=== PATIENT | female | born 1965 | race Caucasian/White ===

== ENCOUNTER → 2018-03-01 | Outpatient (CLI) | payer BC ==
[2016-02-18 08:00] VITALS: BP 110/74
[~2018-03-01] MED LIST: CALC1CAP7 PO; FLUT9.9S NS; LEVO125T PO; METO-239 PO; MULT1TAB52 PO
--- NOTE | 2018-03-01 14:55 | KCIC ---
MRI of the lumbar spine without contrast 03/01/2018 CLINICAL HISTORY: Low back pain which radiates down the right leg. TECHNIQUE: Unenhanced T1-weighted and T2-weighted sagittal and axial and inversion recovery sagittal images of the lumbar spine were obtained. FINDINGS: Very mild S-shaped curvature of the thoracolumbar spine is seen. Degenerative signal changes are seen involving the L2-3, L3-4, L4-5 and L5-S1 discs. Degenerative signal changes are seen within the marrow surrounding these discs. The conus medullaris is normal morphology, position, and signal characteristics. At T12-L1 disc space there is a mild generalized disc bulge. Superimposed on this disc bulge is a left paracentral focal disc protrusion. This measures 5 mm in AP diameter. Degenerative changes are seen involving the facet joints bilaterally. These findings result in mild to moderate left greater than right central spinal canal stenosis on the sagittal images. No neural foraminal stenosis is seen. At the L1-2 disc space there is a mild generalized disc bulge. This is eccentric to the right. Degenerative changes are seen involving the facet joints bilaterally. There is mild ligamentum flavum hypertrophy bilaterally. These findings when combined result in mild right greater than left central spinal canal stenosis. No neural foraminal stenosis is seen. At the L2-3 disc space there is a mild to moderate generalized disc bulge. Degenerative changes are seen involving the facet joints bilaterally. There is moderate ligamentum flavum hypertrophy bilaterally. There is prominence of the posterior epidural fat. These findings when combined result in mild to moderate central spinal canal stenosis. No neural foraminal stenosis is seen. At the L3-4 disc space there is a moderate generalized disc bulge. Superimposed on this disc bulge is a central/right paracentral disc herniation which extrudes superiorly and laterally to the right as a disc fragment. The extruded disc fragment measures 2.3 x 0.5 x 2.4 cm in craniocaudal, transverse, and AP dimensions. Degenerative changes are seen involving the facet joints bilaterally. There is moderate ligamentum flavum hypertrophy bilaterally. These findings when combined result in severe central spinal canal stenosis. Mild bilateral neural foraminal stenosis is seen. At the L4-5 disc space there is a mild generalized disc bulge. Degenerative changes are seen involving the facet joints bilaterally. There is mild ligamentum flavum hypertrophy bilaterally. There is prominence of the posterior epidural fat. These findings when combined result in moderate central spinal canal stenosis. No neural foraminal stenosis is seen. At the L5-S1 disc space is a mild generalized disc bulge. This is eccentric to the right. Degenerative changes are seen involving the facet joints bilaterally. There is mild ligament flavum hypertrophy. These findings when combined do not result in significant central spinal canal or neural foraminal stenosis. IMPRESSION: The changes of degenerative disc disease are seen throughout the lower thoracic and throughout the lumbar spine. These findings result in mild to moderate left greater than right central spinal canal stenosis at T12-L1, mild right greater than left central spinal canal stenosis at L1-2, mild to moderate central spinal canal stenosis at L2-3, severe central spinal canal stenosis at L3-4 and moderate central spinal canal stenosis at L4-5. Mild bilateral neural foraminal stenosis is seen at L3-4. Electronically signed by: Neftaly Pelletier MD (03/01/2018 2:52 PM) [facility]-KCIC1
== END | disposition home or self-care (01) ==
LOC: KCIC MRI 10:46
PROVIDERS: ATTEND Family Medicine
DX: M51.36 Other intervertebral disc degeneration, lumbar region (principal); M51.34 Other intervertebral disc degeneration, thoracic region; M48.05 Spinal stenosis, thoracolumbar region; M48.061 Spinal stenosis, lumbar region without neurogenic claudication; M51.26 Other intervertebral disc displacement, lumbar region
CPT/HCPCS: 72148

== ENCOUNTER → 2018-03-19 | Outpatient (CLI) | payer BC ==
[2016-02-18 08:00] VITALS: BP 110/74
[~2018-03-19] MED LIST changes: +CYCL5TAB PO; +HYDR-3135 PO; +IBUP-1060 PO; +LEVO112T4 PO; +METO-269 PO; +MUPI22OI2 NS
--- NOTE | 2018-03-19 15:17 | EKG ---
[facility] [address] [place] [address] Test Date: 2018-03-19 Test Time: 15:25:22 Pat Name: ALECIA ANDREW Department: Room: Gender: F Cost Control Specialist: GLORIA : 1965 Requested By: ABEL VARGAS Order Number: [id number] Reading MD: Nelson Canales Measurements Intervals [place] Rate: 83 P: 19 IL: 138 QRS: -27 QRSD: 86 T: 19 QT: 376 QTc: 442 Interpretive Statements SINUS RHYTHM LEFTWARD AXIS NONSPECIFIC ST-T WAVE CHANGES. Electronically Signed On 03-20-2018 9:47:38 CHARGE ENTRY by Nelson Canales
[2018-03-19 15:20] LABS: BASO % 1 % (0-3); EOS # 0.2 x10^3/uL (0.0-0.7); EOS % 3 % (0-3); HEMATOCRIT 37.2 % (36.0-47.0); HEMOGLOBIN 13.1 g/dL (12.0-15.5); LYMPH # 2.1 x10^3/uL (1.0-4.8); LYMPH % 32 % (24-48); MEAN CORPUSCULAR HEMOGLOBIN 30 pg (25-35); MEAN CORPUSCULAR HGB CONC 35 g/dL (31-37); MEAN CORPUSCULAR VOLUME 87 fL (79-100); MONO # 0.5 x10^3/uL (0.0-1.1); MONO % 8 % (0-9); NEUT # 3.6 x10^3uL (1.8-7.7); NEUT % 56 % (31-73); PLATELET COUNT 248 x10^3/uL (140-400); RED CELL DISTRIBUTION WIDTH 13.3 % (11.5-14.5); WHITE BLOOD COUNT 6.5 x10^3/uL (4.0-11.0)
[2018-03-19 15:30] LABS: PROTHROMBIN TIME PATIENT 12.4 SEC (11.7-14.0)
[2018-03-19 15:56] LABS: ALBUMIN 3.8 g/dL (3.4-5.0); ALBUMIN/GLOBULIN RATIO 1.2 (1.0-1.7); CREATININE 0.7 mg/dL (0.6-1.0); GFR 87.2; TOTAL BILIRUBIN 0.2 mg/dL (0.2-1.0); TOTAL PROTEIN 7.1 g/dL (6.4-8.2)
--- NOTE | 2018-03-19 15:57 | RAD ---
AP and Lateral Views of the Chest 03/19/2018 3:40 PM Indication: PRE-OP FOR LUMBAR SPINE SURGERY NEXT WEEK Comparison: None Findings: There is no focal consolidation or infiltrate identified. The cardiomediastinal silhouette is within normal limits. There is no evidence of pneumothorax or pleural effusion. No acute osseous abnormalities are identified. Postsurgical changes to the cervical spine noted. Impression: No evidence of acute cardiopulmonary process. Electronically signed by: Maximo Fan MD (03/19/2018 3:54 PM) [facility]-PMC3
[2018-03-20 02:17] LABS: HEMOGLOBIN A1C 6.2 % (4.8-5.6)
== END | disposition home or self-care (01) ==
LOC: SURGPAT 14:43
PROVIDERS: ATTEND Neurological Surgery
DX: Z01.818 Encounter for other preprocedural examination (principal); M51.16 Intervertebral disc disorders with radiculopathy, lumbar region
CPT/HCPCS: 36415; 71046; 80053; 83036; 85025; 85610; 85730; 87641; 93005

== ENCOUNTER 2018-03-26 06:56 | Observation (INO) | payer BC ==
[2018-03-26] VITALS (10 sets, daily range): BP systolic 123–160; BP diastolic 70–91
[~2018-03-26] VITALS: Ht 149.9 cm; Wt 96.2 kg
[~2018-03-26 06:56] MED LIST changes: +BACITRACIN 50,000 UNIT in IV NORMAL SALINE 1000ML BAG 1,000 ML IRR ONE; +BUPIVACAINE MPF 0.5% 30 ML VIAL. ONE; +GELATIN SPONGE SIZE 100. ONE; +LIDOCAINE 1%/EPI 1:100,000 20 ML VIAL. ONE; +THROMBIN TOPICAL 20,000 UNIT SPRAY.SYRN KIT TP ONE
[2018-03-26] MEDS ORDERED: IV RINGERS,LACTATED 1000ML 1,000 ML IV SCH (07:00)
[2018-03-26] MEDS ORDERED: PROCHLORPERAZINE 10 MG/2 ML VIAL. IV PRN (07:00)
[2018-03-26] MEDS ORDERED: fentaNYL PF VIAL 100 MCG/2 ML VIAL IV PRN ×3 (07:00→11:15)
[2018-03-26] MEDS ORDERED: HYDROmorphone 2 MG/ML VIAL IV PRN (07:00)
[2018-03-26] MEDS ORDERED: LIDOCAINE 1% PF 2 ML VIAL. ID PRN (07:00)
[2018-03-26] MEDS ORDERED: ONDANSETRON PF 4 MG/2 ML VIAL. IV PRN ×2 (07:00→11:15)
[2018-03-26] MEDS ORDERED: VANCOMYCIN 1GM IVPB FOR OMNI 250 ML ONE (07:59)
[2018-03-26] MEDS ORDERED: ROCURONIUM 50 MG/5 ML VIAL. ONE (08:14)
[2018-03-26] MEDS ORDERED: REMIFENTANIL 2 MG VIAL. IV ONE (08:14)
[2018-03-26] MEDS ORDERED: GLYCOPYRROLATE 1 MG/5 ML VIAL. ONE (08:14)
[2018-03-26] MEDS ORDERED: PROPOFOL 100 ML IV ONE ×2 (08:20→10:08)
[2018-03-26] MEDS ORDERED: MIDAZOLAM HCL/PF 2 MG/2 ML VIAL. ONE (08:20)
[2018-03-26] MEDS ORDERED: SUCCINYLCHOLINE 200 MG/10 ML VIAL. ONE (08:20)
[2018-03-26] MEDS ORDERED: fentaNYL PF VIAL 250 MCG/5 ML VIAL ONE (08:20)
[2018-03-26] MEDS ORDERED: DESFLURANE > 120 MINUTES IH ONE (08:23)
[2018-03-26] MEDS ORDERED: PHENYLEPHRINE 10 MG/ML VIAL. ONE (08:23)
[2018-03-26] MEDS ORDERED: PROPOFOL 20 ML IV ONE (09:11)
[2018-03-26] MEDS ORDERED: ONDANSETRON PF 4 MG/2 ML VIAL. ONE (09:11)
[2018-03-26] MEDS ORDERED: KETOROLAC 30 MG/ML INJ FOR OR. INJ ONE (09:11)
[2018-03-26] MEDS ORDERED: DEXAMETHASONE SOD PHOS 20 MG/5 ML VIAL. ONE (09:11)
[2018-03-26] MEDS ORDERED: NEOSTIGMINE METHYLSULFATE 5 MG/5 ML SYRINGE. ONE (10:44)
--- NOTE | 2018-03-26 11:04 | PDOC ---
BRIEF OPERATIVE NOTE Date: Mar 26, 2018 Pre-Op Diagnosis lumbar disk herniation, lumbar radiculopathy, weakness, lumbar spondylosis Post-Op Diagnosis same Procedure Performed right L3-4 hemilaminotomy with discectomy, use of microscope, neuromonitoring Surgeon Danny Brian Anesthesia Type: General Blood Loss 25mL Specimens Obtained disk and decompression Findings prominent stenosis due to disk herniation in and ligamentous hypertrophy, neuromonitoring potentials remained at least baseline throughout the procedure with some improvement of RLE SSEPs at the completion of the procedure Complications none apparent ABEL VARGAS MD Mar 26, 2018 11:04
[2018-03-26] MEDS ORDERED: MUPIROCIN 2 % NASAL OINTMENT 22GM TUBE. NS PRN (11:15)
[2018-03-26] MEDS ORDERED: 0.9 % SODIUM CHLORIDE 10 ML DISP.SYRIN. IV PRN (11:15)
[2018-03-26] MEDS ORDERED: CALCIUM CARBONATE 500 MG TAB.CHEW PO PRN (11:15)
[2018-03-26] MEDS ORDERED: MAG HYDROX/ALUMINUM HYD/SIMETH 30 ML ORAL.SUSP PO PRN (11:15)
[2018-03-26] MEDS ORDERED: MAGNESIUM HYDROXIDE 2,400 MG/30 ML ORAL.SUSP. PO PRN (11:15)
[2018-03-26] MEDS ORDERED: diphenhydrAMINE HCL 25 MG CAPSULE PO PRN (11:15)
[2018-03-26] MEDS ORDERED: ZOLPIDEM 5 MG TABLET. PO PRN (11:15)
[2018-03-26] MEDS ORDERED: NALOXONE 0.4 MG/ML VIAL. IV PRN (11:15)
[2018-03-26] MEDS ORDERED: ACETAMINOPHEN 325 MG TABLET. PO PRN (11:15)
[2018-03-26] MEDS ORDERED: fentaNYL PF VIAL 100 MCG/2 ML VIAL ONE ×2 (11:24→11:50)
[2018-03-26] MEDS: fentaNYL PF VIAL 100 MCG/2 ML VIAL IV PRN ×4 (11:28→12:07)
[2018-03-26] MEDS ORDERED: MORPHINE SULFATE 2 MG/ML VIAL. ONE ×2 (11:44→12:10)
[2018-03-26] MEDS: MORPHINE SULFATE 2 MG/ML VIAL. IV PRN ×4 (11:47→12:28)
[2018-03-26] MEDS ORDERED: ceFAZolin 2GM PREMIX 2 GM/50 ML BAG IV ONE (12:00)
[2018-03-26] MEDS: METHOCARBAMOL 750 MG TABLET PO SCH ×2 (14:14→20:47)
[2018-03-26] MEDS: oxyCODONE/APAP 5/325 1 TAB TABLET PO PRN ×5 (14:15→23:04)
[2018-03-26] MEDS: CALCIUM CARB/VIT D3 500/200 TABLET. PO SCH (16:43)
[2018-03-26] MEDS: FERROUS SULFATE 325 MG TABLET. PO SCH (16:44)
[2018-03-26] MEDS: DOCUSATE SODIUM 100 MG CAPSULE. PO SCH (20:47)
[2018-03-26] MEDS ORDERED: METOPROLOL SUCC 24HR ER 50 MG TAB.ER.24H. PO SCH (21:00)
[2018-03-26] MEDS: SENNOSIDES/DOCUSATE 8.6/50MG TABLET. PO SCH (21:00)
[2018-03-27 03:20] VITALS: BP 133/72
[2018-03-27] MEDS: oxyCODONE/APAP 5/325 1 TAB TABLET PO PRN ×2 (03:20→07:50)
[2018-03-27 06:34] VITALS: BP 114/73
[2018-03-27] MEDS ORDERED: LEVOTHYROXINE 112 MCG TABLET PO SCH (07:00)
[2018-03-27] MEDS: CALCIUM CARB/VIT D3 500/200 TABLET. PO SCH (07:50)
[2018-03-27] MEDS: DOCUSATE SODIUM 100 MG CAPSULE. PO SCH (07:50)
[2018-03-27] MEDS: METHOCARBAMOL 750 MG TABLET PO SCH (07:51)
[2018-03-27] MEDS: FERROUS SULFATE 325 MG TABLET. PO SCH (07:51)
[2018-03-27] MEDS: SENNOSIDES/DOCUSATE 8.6/50MG TABLET. PO SCH (07:51)
--- NOTE | 2018-03-27 07:56 | OP ---
DATE OF SURGERY: 03/26/2018 PREOPERATIVE DIAGNOSIS: Lumbar disk herniation with radiculopathy, weakness and lumbar spondylosis. POSTOPERATIVE DIAGNOSIS: Lumbar disk herniation with radiculopathy, weakness and lumbar spondylosis. SURGEON: Hesham Vargas MD PSYCHOLOGY PROFESSOR: Roc. PROCEDURE: Right lumbar 3-4 hemilaminotomy with diskectomy with intraoperative use of microscope and intraoperative neuro monitoring. ANESTHESIA: General. COMPLICATIONS: None intraprocedurally. INDICATIONS FOR THE PROCEDURE: The patient is a 53-year-old female with significant right lower extremity pain with weakness localized to a prominent disk herniation in the right paracentral L3-L4 region producing stenosis in combination with degenerative ligamentous hypertrophy. Please refer to the patient's medical record for additional details. DESCRIPTION OF PROCEDURE: After informed consent was obtained, the patient was brought into the operating room. She was placed under general anesthesia. Neuro monitoring was instituted and baseline potentials were obtained. She was placed in the prone position on the Gaetano table. All pressure points were checked and padded appropriately. The lumbar region was prepped and draped in the usual sterile fashion. An appropriate incision location was localized with fluoroscopy and a vertical incision centered over the region of lumbar 3-4 was made with a 10 blade scalpel. Monopolar electrocautery was utilized to dissect the avascular midline to the spinous processes of lumbar 3 and lumbar 4 and rightward across the lamina at this location. Level was again verified with fluoroscopy prior to the initiation of decompression. Once this was complete, the inferior aspect of the lumbar 3 lamina on the right was decompressed with a pneumatic drill to perform a hemilaminotomy. This was also performed with a Kerrison rongeur. Once this was complete, the underlying ligament was gently dissected away from the thecal sac utilizing a Maribell and a blunt nerve hook. This was removed with a Kerrison rongeur. The neural elements were noted to be under significant compression and the ligament was noted to be significantly hypertrophied. The neural elements were gently retracted medially and a prominent bulging annulus was identified. A small annulotomy was performed with an 11 blade scalpel and disk material emerged under pressure. Diskectomy was performed with pituitary rongeurs and this was completed in a piecemeal fashion. The disk and decompression were sent for permanent section. Additional disk material was gently teased posterolaterally utilizing a blunt nerve hook and a Maribell and diskectomy was completed again with pituitary rongeur. Upon completion of this, the neural elements were noted to be very well decompressed. This was verified with direct visualization as well as gentle palpation with a blunt nerve hook and a Grundy. It was also noted that neuro monitoring potentials were slightly improved compared to baseline upon completion of decompression. Pristine hemostasis was achieved with FloSeal, cottonoids, generous irrigation and some use of bipolar electrocautery. The wound was generously irrigated with antibiotic irrigation prior to closure. The muscles and the fascia were reapproximated with 0 Vicryl in a simple interrupted fashion. The subcutaneous tissues were reapproximated with 2-0 Vicryl in interrupted inverted fashion. The skin was reapproximated with 4-0 Vicryl in a running subcuticular fashion. Mastisol and Steri-Strips were applied. The wound was dressed with Telfa, Tegaderm and 4 x 4. At the end of the procedure, all needle and sponge counts were correct. Neuro monitoring was at least baseline throughout the entire procedure and some improvement was noted upon the completion of the procedure. The patient was extubated in the operating room and taken to the recovery in stable condition. There were no intraprocedural complications apparent. HESHAM VARGAS MD DR: RADHA/daphnie JOB#: [id number] / [id number]
--- NOTE | 2018-03-27 08:12 | PDOC ---
PROGRESS NOTES Subjective Subjective Reports resolution of right leg pain. Some incisional pain controlled with po medication. Has been OOB without significant problem. Objective Objective Vital Signs Date Time Temp Pulse Resp B/P (MAP) Pulse Ox O2 Delivery O2 Flow Rate FiO2 03/27/18 07:50 Room Air 03/27/18 06:34 97.9 85 16 114/73 (87) 96 97.9 03/26/18 12:30 2 Intake and Output 03/27/18 07:00 Intake Total 1900 ml Output Total 1225 ml Balance 675 ml Intake Oral 650 ml IV Total 1250 ml Output Urine Total 1200 ml Stool Total 0 ml Estimated Blood Loss 25 ml # Voids 2 Physical Exam Physical Exam AAOx4, BAE 5/5, sensation intact LT, c/d/i flat with some shadowing on dressing Assessment Assessment POD 1 right L3-4 hemilaminotomy with discectomy - stable and well with improvement of pre-op symptoms Plan Plan of Care -d/c home today with standard post-op restrictions (discussed with pt) -rx's on chart -follow-up two weeks ([phone]) Comment Review of Relevant I have reviewed the following items michelle (where applicable) has been applied. Medications Current Medications Bacitracin 89956 unit/Sodium Chloride 1,000 ml @ 1,000 mls/hr 1X ONCE IRR ; Start 03/26/18 at 06:00; Stop 03/26/18 at 06:59; Status DC Ondansetron HCl (Zofran) 4 mg PRN Q6HRS PRN IV NAUSEA/VOMITING; Start 03/26/18 at 07:00; Stop 03/26/18 at 13:13; Status DC Fentanyl Citrate (Fentanyl 2ml Vial) 25 mcg PRN Q5MIN PRN IV MILD PAIN; Start 03/26/18 at 07:00; Stop 03/26/18 at 13:13; Status DC Fentanyl Citrate (Fentanyl 2ml Vial) 50 mcg PRN Q5MIN PRN IV MODERATE TO SEVERE PAIN Last administered on 03/26/18at 12:07; Start 03/26/18 at 07:00; Stop 03/26/18 at 13:13; Status DC Morphine Sulfate (Morphine Sulfate) 1 mg PRN Q10MIN PRN IV SEVERE PAIN Last administered on 03/26/18at 12:28; Start 03/26/18 at 07:00; Stop 03/26/18 at 13:13 ; Status DC Ringer's Solution 1,000 ml @ 30 mls/hr Q24H IV Last administered on 03/26/18at 07:55; Start 03/26/18 at 07:00; Stop 03/26/18 at 13:13; Status DC Lidocaine HCl (Xylocaine-Mpf 1% 2ml Vial) 2 ml PRN 1X PRN ID PRIOR TO IV START ; Start 03/26/18 at 07:00; Stop 03/26/18 at 13:13; Status DC Hydromorphone HCl (Dilaudid) 0.5 mg PRN Q10MIN PRN IV SEV PAIN, Second choice; Start 03/26/18 at 07:00; Stop 03/26/18 at 13:13; Status DC Prochlorperazine Edisylate (Compazine) 5 mg PACU PRN PRN IV NAUSEA, MRX1; Start 03/26/18 at 07:00; Stop 03/26/18 at 13:13; Status DC Cefazolin Sodium/ Dextrose 50 ml @ 50 mls/hr 1X ONCE IV ; Start 03/26/18 at 06: 00; Stop 03/26/18 at 06:59; Status DC Gelatin (Gelfoam Size 100) 1 each STK-MED ONCE .ROUTE ; Start 03/26/18 at 06:44 ; Stop 03/26/18 at 06:45; Status DC Bupivacaine HCl (Sensorcaine Mpf 0.5%) 30 ml STK-MED ONCE .ROUTE Last administered on 03/26/18at 09:42; Start 03/26/18 at 06:44; Stop 03/26/18 at 06:45 ; Status DC Lidocaine/ Epinephrine (LIDOCAINE 1%-EPI 1:100,000 Multi-Dose) 20 ml STK-MED ONCE .ROUTE Last administered on 03/26/18at 09:42; Start 03/26/18 at 06:45; Stop 03/26/18 at 06:46; Status DC Thrombin 20,000 unit STK-MED ONCE TP ; Start 03/26/18 at 06:45; Stop 03/26/18 at 06:46; Status DC Vancomycin HCl 250 ml @ As Directed STK-MED ONCE .ROUTE ; Start 03/26/18 at 07: 59; Stop 03/26/18 at 08:00; Status DC Glycopyrrolate (Robinul) 1 mg STK-MED ONCE .ROUTE ; Start 03/26/18 at 08:14; Stop 03/26/18 at 08:15; Status DC Rocuronium [place] (Zemuron) 50 mg STK-MED ONCE .ROUTE ; Start 03/26/18 at 08:14 ; Stop 03/26/18 at 08:15; Status DC Remifentanil HCl (Ultiva) 2 mg STK-MED ONCE IV ; Start 03/26/18 at 08:14; Stop 03/26/18 at 08:15; Status DC Propofol 100 ml @ As Directed STK-MED ONCE IV ; Start 03/26/18 at 08:20; Stop 03/26/18 at 08:21; Status DC Succinylcholine Chloride (Anectine) 200 mg STK-MED ONCE .ROUTE ; Start 03/26/18 at 08:20; Stop 03/26/18 at 08:21; Status DC Midazolam HCl (Versed) 2 mg STK-MED ONCE .ROUTE ; Start 03/26/18 at 08:20; Stop 03/26/18 at 08:21; Status DC Fentanyl Citrate (Fentanyl 5ml Vial) 250 mcg STK-MED ONCE .ROUTE ; Start at 08:20; Stop 03/26/18 at 08:22; Status DC Phenylephrine HCl (Adis-Synephrine Inj) 10 mg STK-MED ONCE .ROUTE ; Start at 08:23; Stop 03/26/18 at 08:24; Status DC Desflurane (Suprane) 90 ml STK-MED ONCE IH ; Start 03/26/18 at 08:23; Stop 03/26 at 08:24; Status DC Dexamethasone Sodium Phosphate (Decadron) 20 mg STK-MED ONCE .ROUTE ; Start 03/26/18 at 09:11; Stop 03/26/18 at 09:12; Status DC Propofol 20 ml @ As Directed STK-MED ONCE IV ; Start 03/26/18 at 09:11; Stop at 09:12; Status DC Ondansetron HCl (Zofran) 4 mg STK-MED ONCE .ROUTE ; Start 03/26/18 at 09:11; Stop 03/26/18 at 09:12; Status DC Ketorolac Tromethamine (Toradol For Or Only) 30 mg STK-MED ONCE INJ ; Start 03/26/18 at 09:11; Stop 03/26/18 at 09:12; Status DC Propofol 100 ml @ As Directed STK-MED ONCE IV ; Start 03/26/18 at 10:08; Stop 03/26/18 at 10:09; Status DC Neostigmine Methylsulfate (Neostigmine Methylsulfate) 5 mg STK-MED ONCE .ROUTE ; Start 03/26/18 at 10:44; Stop 03/26/18 at 10:45; Status DC Multivitamins (Thera M Plus) 1 tab DAILY PO Last administered on 03/27/18at 07: 51; Start 03/27/18 at 09:00 Calcium/Vitamin D (Oscal D 500mg/ 200uts) 1 tab BIDWMEALS PO Last administered on 03/27/18at 07:50; Start 03/26/18 at 17:00 Ferrous Sulfate (Feosol) 325 mg BIDWMEALS PO Last administered on 03/27/18at 07: 51; Start 03/26/18 at 17:00 Acetaminophen (Tylenol) 650 mg PRN Q6HRS PRN PO MILD PAIN / TEMP; Start at 11:15 Al Hydroxide/Mg Hydroxide (Mylanta Plus Xs) 30 ml PRN Q3HRS PRN PO HEARTBURN / GAS; Start 03/26/18 at 11:15 Calcium Carbonate/ Glycine (Tums) 500 mg PRN Q3HRS PRN PO INDIGESTION; Start 03/26/18 at 11:15 Diphenhydramine HCl (Benadryl) 25 mg PRN Q6HRS PRN PO ITCHING Last administered on 03/26/18at 20:53; Start 03/26/18 at 11:15 Zolpidem Tartrate (Ambien) 5 mg PRN QHS PRN PO INSOMNIA, MAY REPEAT IN 1HR; Start 03/26/18 at 11:15 Naloxone HCl (Narcan) 0.1 mg PRN Q2MIN PRN IV ADMIN; Start 03/26/18 at 11:15 Sodium Chloride (Normal Saline Flush) 3 ml QSHIFT PRN IV AFTER MEDS AND BLOOD DRAWS; Start 03/26/18 at 11:15 Oxycodone/ Acetaminophen (Percocet 5/325) 1 tab PRN Q4HRS PRN PO MILD PAIN, 1ST CHOICE Last administered on 03/26/18at 19:02; Start 03/26/18 at 11:15 Oxycodone/ Acetaminophen (Percocet 5/325) 2 tab PRN Q4HRS PRN PO MODERATE PAIN , SEVERE PAIN Last administered on 03/27/18at 07:50; Start 03/26/18 at 11:15 Methocarbamol (Robaxin) 750 mg TID PO Last administered on 03/27/18at 07:51; Start 03/26/18 at 14:00 Senna/Docusate Sodium (Senna Plus) 1 tab BID PO Last administered on 03/27/18at 07:51; Start 03/26/18 at 21:00 Docusate Sodium (Colace) 100 mg BID PO Last administered on 03/27/18at 07:50; Start 03/26/18 at 21:00 Magnesium Hydroxide (Milk Of Magnesia) 2,400 mg PRN Q12HR PRN PO CONSTIPATION; Start 03/26/18 at 11:15 Ondansetron HCl (Zofran) 4 mg PRN Q6HRS PRN IV NAUESA, 1ST CHOICE; Start at 11:15 Fentanyl Citrate (Fentanyl 2ml Vial) 50 mcg PRN Q1HR PRN IV SEVERE PAIN; Start 03/26/18 at 11:15 Fentanyl Citrate (Fentanyl 2ml Vial) 25 mcg PRN Q1HR PRN IV SEVERE PAIN; Start 03/26/18 at 11:15 Levothyroxine Sodium (Synthroid) 112 mcg DAILY07 PO Last administered on at 07:50; Start 03/27/18 at 07:00 Mupirocin (Bactroban) 1 sunitha BID PRN NS SEE COMMENTS; Start 03/26/18 at 11:15 Fluticasone Propionate (Flonase) 2 spray DAILY NS ; Start 03/27/18 at 09:00 Metoprolol Succinate (Toprol Xl) 50 mg QHS PO Last administered on 03/26/18at 20 :47; Start 03/26/18 at 21:00 Non-Formulary Medication (Multivitamin (Multivitamins)) 1 tab DAILY PO ; Start 03/27/18 at 09:00; Status UNV Morphine Sulfate (Morphine Sulfate) 2 mg STK-MED ONCE .ROUTE ; Start 03/26/18 at 11:44; Stop 03/26/18 at 11:45; Status DC Morphine Sulfate (Morphine Sulfate) 2 mg STK-MED ONCE .ROUTE ; Start 03/26/18 at 12:10; Stop 03/26/18 at 12:11; Status DC Fentanyl Citrate (Fentanyl 2ml Vial) 100 mcg STK-MED ONCE .ROUTE ; Start at 11:24; Stop 03/26/18 at 13:27; Status DC Fentanyl Citrate (Fentanyl 2ml Vial) 100 mcg STK-MED ONCE .ROUTE ; Start at 11:50; Stop 03/26/18 at 13:28; Status DC Active Scripts Active Reported Mupirocin Ointment (Mupirocin) 22 Gm Oint...g. 1 Sunitha NS BID PRN Ibuprofen 800 Mg Tablet 800 Mg PO PRN Q6HRS PRN [place] 10-325 Tablet (Acetaminophen/Hydrocodone Bitart) 1 Each Tablet 1 Tab PO QID Multivitamins (Multivitamin) 1 Each Tablet 1 Tab PO DAILY Cyclobenzaprine Hcl 5 Mg Tablet 1 Tab PO TID Levothyroxine Sodium 112 Mcg Tablet 1 Tab PO DAILY Toprol Xl (Metoprolol Succinate) 50 Mg Tab.er.24h 50 Mg PO HS Flonase Allergy Relief (Fluticasone Propionate) 9.9 Ml [place].susp 2 Sprays NS DAILY Vitals/I & O Vital Sign - Last 24 Hours 03/26/18 03/26/18 03/26/18 03/26/18 11:10 11:10 11:25 11:28 Temp 98.5 98.5 Pulse 82 76 Resp 14 14 16 B/P (MAP) 153/63 157/75 Pulse Ox 100 96 96 O2 Delivery Mask Simple Mask Room Air Room Air O2 Flow Rate 10 10 03/26/18 03/26/18 03/26/18 03/26/18 11:40 11:41 11:47 11:55 Pulse 82 Resp 16 14 18 16 B/P (MAP) 143/79 Pulse Ox 97 96 97 O2 Delivery Nasal Cannula Room Air Room Air Nasal Cannula O2 Flow Rate 2 2.0 03/26/18 03/26/18 03/26/18 12/4/18 11:55 12:01 12:07 12:10 Temp 98.3 98.3 Pulse 77 79 Resp 16 14 18 16 B/P (MAP) 143/64 136/65 Pulse Ox 99 99 97 98 O2 Delivery Nasal Cannula Nasal Cannula Nasal Cannula Nasal Cannula O2 Flow Rate 2 2.0 2.0 2 03/26/18 03/26/18 03/26/18 03/26/18 12:13 12:25 12:28 12:30 Temp 98.5 98.5 Pulse 79 Resp 18 18 18 B/P (MAP) 145/74 Pulse Ox 98 99 98 O2 Delivery Nasal Cannula Nasal Cannula Nasal Cannula Room Air O2 Flow Rate 2.0 2 2.0 03/26/18 03/26/18 03/26/18 03/26/18 12:30 12:30 12:35 12:45 Temp 97.7 97.7 Pulse 69 92 88 Resp 20 B/P (MAP) 145/75 (98) 160/85 (110) 146/74 (98) Pulse Ox 97 95 O2 Delivery Nasal Cannula Room Air O2 Flow Rate 2 03/26/18 03/26/18 03/26/18 03/26/18 13:00 13:15 14:02 15:20 Temp 97.7 97.7 Pulse 88 85 85 85 Resp 18 B/P (MAP) 142/91 (108) 159/91 (113) 149/83 (105) 149/83 (105) Pulse Ox 94 94 95 O2 Delivery Room Air 03/26/18 03/26/18 03/26/18 03/26/18 16:27 18:18 18:54 19:02 Temp 97.6 98.6 97.6 98.6 Pulse 78 75 Resp 20 18 20 20 B/P (MAP) 148/71 (96) 157/75 (102) Pulse Ox 95 96 O2 Delivery Room Air Room Air Room Air Room Air 03/26/18 03/26/18 03/26/18 03/26/18 20:00 20:12 20:47 23:02 Temp 98.0 98.0 Pulse 75 89 Resp 20 20 B/P (MAP) 157/75 123/70 (87) Pulse Ox 96 O2 Delivery Room Air Room Air 03/26/18 03/27/18 03/27/18 03/27/18 23:04 03:20 03:20 04:30 Temp 98.5 98.5 Pulse 82 Resp 20 20 20 16 B/P (MAP) 133/72 (92) Pulse Ox 96 O2 Delivery Room Air Room Air Room Air 03/27/18 03/27/18 03/27/18 06:34 07:21 07:50 Temp 97.9 97.9 Pulse 85 Resp 16 B/P (MAP) 114/73 (87) Pulse Ox 96 O2 Delivery Room Air Room Air Room Air Intake and Output 03/26/18 03/26/18 03/27/18 15:00 23:00 07:00 Intake Total 1540 ml 360 ml Output Total 425 ml 800 ml 0 ml Balance 1115 ml -440 ml 0 ml ABEL VARGAS MD Mar 27, 2018 08:12
[2018-03-27] MEDS ORDERED: SENN1TAB8 PO (08:31)
[2018-03-27] MEDS ORDERED: OXYC1TAB15 PO (08:32)
[2018-03-27] MEDS ORDERED: METH-38 PO (08:33)
[2018-03-27] MEDS ORDERED: MULTIVITAMIN with MINERAL TABLET. PO SCH (09:00)
[2018-03-27] MEDS ORDERED: NON FORMULARY ITEM (Multivitamin (Multivitamins) 1 TAB) PO SCH (09:00)
[2018-03-27] MEDS ORDERED: FLUTICASONE 50MCG/NASAL SPRAY 16GM BOTTLE. NS SCH (09:00)
[2018-03-27 11:12] VITALS: BP 100/59
--- NOTE | 2018-03-28 16:08 | PATHOLOGY ---
[facility] Accession Number: [id number] . 01 Material submitted: . HERNIATED DISC L3-4 . 01 Clinical history: . Radiculopathy, herniated disc L3-4 . 02 Diagnosis: Segments of fibrocartilaginous and skeletal muscle tissue and bone, disc: - Degenerative changes of fibrocartilaginous tissue. [facility]/03/28/2018 . 02 Comment: There is no evidence of an acute inflammatory process or malignancy. ([facility] 03[facility]) . 02 Electronically signed: . Bobo Solis MD, Pathologist NPI- [id number] . 01 Gross description: . Received in formalin labeled "Mitchell, Linda, disc," are several pieces of glistening, fibrous tissue measuring 3.1 x 2.4 x 0.5 cm in aggregate dimensions, containing small fragments of possible bone. The tissue is filtered and submitted entirely in cassette A1, following decalcification. ([facility]; 03/26/2018) TOB/TOB . 02 Pathologist provided ICD-10: M51.36 . 02 CPT . 635892, 645153 Specimen Comment: A courtesy copy of this report has been sent to Specimen Comment: [phone], . Specimen Comment: Report sent to / DR BARKER Specimen Comment: A duplicate report has been generated due to demographic updates. Performed at: 01 [facility] [address], [place] [id number] MD Von Gordillo MD Phone: [phone] Performed at: 02 [facility] [address] [place], [place] [id number] MD Bobo Solis MD Phone: [phone]
== END 2018-03-27 11:20 | disposition home or self-care (01) ==
LOC: SURG 06:56 → 4 SOUTHEST 11:28
PROVIDERS: ADMIT Neurological Surgery; ATTEND Neurological Surgery
DX: M51.16 Intervertebral disc disorders with radiculopathy, lumbar region (principal); M47.26 Other spondylosis with radiculopathy, lumbar region; M48.061 Spinal stenosis, lumbar region without neurogenic claudication; R53.1 Weakness
CPT/HCPCS: 36415; 63047; 76000; 86850; 86900; 86901; 88304; 88311; 97161; 97165; A7015; G0378; G0379; G8987; G8988; G8989; J0330; J0690; J1100; J1885; J2250; J2270; J2405; J2704; J2710; J3010; J3370; J3490; J7030; Q0163

== ENCOUNTER → 2018-09-06 | Outpatient (CLI) | payer BC ==
[~2018-09-06] MED LIST changes: -BACITRACIN 50,000 UNIT in IV NORMAL SALINE 1000ML BAG 1,000 ML IRR ONE; -BUPIVACAINE MPF 0.5% 30 ML VIAL. ONE; -GELATIN SPONGE SIZE 100. ONE; -LIDOCAINE 1%/EPI 1:100,000 20 ML VIAL. ONE; +METH-38 PO; +OXYC1TAB15 PO; +SENN-161 PO; -THROMBIN TOPICAL 20,000 UNIT SPRAY.SYRN KIT TP ONE
--- NOTE | 2018-09-06 11:57 | KCIC ---
EXAM: Bilateral digital screening mammogram with tomosynthesis. HISTORY: 53-year-old female presents for screening mammography. TECHNIQUE: Full-field digital craniocaudal and mediolateral oblique 2D and 3D tomosynthesis images of both breasts are obtained for evaluation. Computer aided detection with TvinciD software version 9.3 was applied. COMPARISON: 08/17/2017 BREAST PARENCHYMAL DENSITY: Level B - Scattered fibroglandular densities. FINDINGS: There is no new suspicious mass, microcalcification or region of architectural distortion. There is a stable small circumscribed nodular density within the 6:00 position of the right breast at mid depth. IMPRESSION: BI-RADS Category 2: Benign finding(s). RECOMMENDATION: Annual mammography is recommended. If your mammogram demonstrates that you have dense breast tissue, which could hide abnormalities, and if you have other risk factors for breast cancer that have been identified, you might benefit from supplemental screening tests that may be suggested by your ordering physician. Dense breast tissue, in and of itself, is a relatively common condition. This information is not provided to cause undue concern, but rather to raise your awareness and to promote discussion with your physician regarding the presence of other risk factors, in addition to dense breast tissue. A report of your mammography results will be sent to you and your physician. You should contact your physician if you have any questions or concerns regarding this report. Mammography is a sensitive method for finding small breast cancers, but it does not detect them all and is not a substitute for careful clinical examination. A negative mammogram does not negate a clinically suspicious finding and should not result in delay in biopsying a clinically suspicious abnormality. PQRS compliance statement - Patient information was entered into a reminder system with a target due date for the next mammogram. "Our facility is accredited by the [employer] Mammography Program." Electronically signed by: Nemo Heart MD (09/06/2018 11:54 AM) [facility]
== END | disposition home or self-care (01) ==
LOC: KCIC MAMMO 09:48
PROVIDERS: ATTEND Family Medicine
DX: Z12.31 Encounter for screening mammogram for malignant neoplasm of breast (principal)
CPT/HCPCS: 77063; 77067

== ENCOUNTER → 2020-01-07 | Outpatient (CLI) | payer BC ==
[~2020-01-07] MED LIST changes: -LEVO112T4 PO; +LEVO112T49 PO; +MULT-445 PO; -MULT1TAB52 PO
--- NOTE | 2020-01-07 10:25 | KCIC ---
EXAM: Bilateral digital screening mammogram with tomosynthesis. HISTORY: 54-year-old female presents for screening mammography. TECHNIQUE: Full-field digital craniocaudal and mediolateral oblique 2D and 3D tomosynthesis images of both breasts are obtained for evaluation. Computer aided detection with [employer] software version 9.3 was applied. COMPARISON: 09/06/2018 BREAST PARENCHYMAL DENSITY: Level B - Scattered fibroglandular densities. FINDINGS: There is no new suspicious mass, microcalcification or region of architectural distortion. There are stable areas of nodularity within both breasts. IMPRESSION: BI-RADS Category 2: Benign finding(s). RECOMMENDATION: Annual mammography is recommended. If your mammogram demonstrates that you have dense breast tissue, which could hide abnormalities, and if you have other risk factors for breast cancer that have been identified, you might benefit from supplemental screening tests that may be suggested by your ordering physician. Dense breast tissue, in and of itself, is a relatively common condition. This information is not provided to cause undue concern, but rather to raise your awareness and to promote discussion with your physician regarding the presence of other risk factors, in addition to dense breast tissue. A report of your mammography results will be sent to you and your physician. You should contact your physician if you have any questions or concerns regarding this report. Mammography is a sensitive method for finding small breast cancers, but it does not detect them all and is not a substitute for careful clinical examination. A negative mammogram does not negate a clinically suspicious finding and should not result in delay in biopsying a clinically suspicious abnormality. PQRS compliance statement - Patient information was entered into a reminder system with a target due date for the next mammogram. "Our facility is accredited by the [employer] Mammography [employer]." Electronically signed by: Nemo Heart MD (01/07/2020 10:21 AM) [email or web address]
== END | disposition home or self-care (01) ==
LOC: KCIC MAMMO 08:27
PROVIDERS: ATTEND Family Medicine
DX: Z12.31 Encounter for screening mammogram for malignant neoplasm of breast (principal); N64.89 Other specified disorders of breast
CPT/HCPCS: 77063; 77067

== ENCOUNTER → 2021-01-11 | Outpatient (CLI) | payer BC ==
--- NOTE | 2021-01-11 14:00 | KCIC ---
Bilateral digital screening mammograms with 3-D tomosynthesis: Reason for examination: Routine screening. Comparison is made to previous studies dated back to 08/17/2017. Bilateral mammograms in CC and oblique projections were obtained with 2-D imaging and 3-D tomosynthes is imaging on a Siemens Inspiration unit and reviewed on the workstation. Interpretation was made wit h the benefit of CAD. The skin and nipples show no abnormalities. No abnormal axillary lymph nodes are seen. The breast par enchyma shows scattered fatty and fibroglandular density. (Breast density: Category B.) There are sma ll parenchymal density seen in the right breast which are stable. There are no new dominant masses, s uspicious calcifications or architectural distortion. Impression: No evidence of malignancy. Recommend routine screening. BI-RAD Category 2: Benign. "Our facility is accredited by the [employer] Mammography [employer]." This patient's information has been entered into a reminder system for the patient to be notified wit h the results of her examination and a target date for the next mammogram. Electronically signed by: Nancy Franz MD (01/11/2021 11:48 AM) [email or web address]
== END ==
LOC: KCIC MAMMO 09:45
PROVIDERS: ATTEND Family Medicine
DX: Z12.31 Encounter for screening mammogram for malignant neoplasm of breast (principal)
CPT/HCPCS: 77063; 77067